=== PATIENT | male | born 1945 | race Caucasian/White ===

== ENCOUNTER → 2018-11-24 | Outpatient (CLI) | payer OTHER ==
[~2018-11-24] MED LIST: ACET-458 PO; ATOR20TA37 PO; LISI1TAB3 PO; OMEP-110 PO; SENN-177 PO
== END | disposition home or self-care (01) ==
LOC: CFH 13:20
PROVIDERS: ATTEND Student in an Organized Health Care Education/Training Program
DX: N62 Hypertrophy of breast (principal)
CPT/HCPCS: 77066